=== PATIENT | male | born 1995 | race Caucasian/White ===

== ENCOUNTER 2023-08-26 18:07 | Emergency (ER) | payer SELFPAY ==
[2023-08-26 18:09] VITALS: BP 160/98
--- NOTE | 2023-08-26 19:09 | ED.GENMED ---
History of Present Illness
General
Chief Complaint: Alcohol Problem
Source: patient
Time Seen by Provider: 08/26/23 18:55
Travel History
Have you had any contact with someone who has COVID-19?: No
Do you have any symptoms of coronavirus? Fever > 100 degrees, chills, cough, shortness of breath, sore throat, loss of taste or smell, muscle aches, or headache?: No
History of Present Illness
History of Present Illness:
This patient is a 28-year-old male with no prior medical history who presents with a history of heavy alcohol use. He now is drinking between 12-15 shots of alcohol per day. His last drink was sometime this morning, and says he starting to feel
like he is in mild alcohol withdrawal. He states that he no longer wants to drink alcohol but he is afraid that he will develop life-threatening symptoms if he attempts to withdraw on his own. He has had poor food and drink intake over the last
couple days just because he does not really feel very hungry. He overall feels shaky, weak, anxious, with occasional nonbloody vomiting. He denies chest pain, shortness of breath, abdominal pain, bleeding, or other complaints. He denies drug use.
Past History
Past History
ED Past Medical History: None
ED Past Surgical History: Urological
Social History
Tobacco: Smoker
Alcohol: Daily
Drug: None
Personal:
Living: alone
Phy Exam
Physical Exam
Physical Exam:
GENERAL: Alert , unkempt, in no apparent distress
EYE: pupils equal and reactive
NECK: Supple, no significant adenopathy.
ENT: o/p clr, mm dry
CARDIAC: Regular rate and rhythm, tachycardia .
LUNGS: Clear breath sounds bilaterally, no acute respiratory distress, no wheezes/rales/rhonchi
ABDOMEN: Soft, without focal tenderness, no r/g, no cvat
NEUROLOGICAL: Alert and oriented, no focal neuro deficits
SKIN: Warm and dry, skin intact.
MUSCULOSKELETAL: No edema, well perfused.
PSYCH: sl anxious
Scores
Withdrawal Assessment of Alcohol
Withdrawal Assessment Completed?: Yes
Nausea and Vomiting: Intermittent nausea with dry heaves
Tactile Disturbances: None
Tremor: Not visible, but can be felt fingertip to fingertip
Auditory Disturbances: Not present
Paroxysmal Sweats: No sweat visible
Visual Disturbances: Not present
Anxiety: Mild anxiety
Headache, Fullness in Head: Very mild
Agitation: Normal activity
Orientation and clouding of sensorium: Oriented and can do serial additions
Total CIWA Score: 7
Alcohol Withdrawal Medication Recommendation: Equal to MSAS Score 0-4. Monitor & re-assess q2hrs, NO MEDICATION NEEDED
Course
Orders/Labs/Results
Orders:
Orders
08/26/23 19:07
Cardiac Monitoring- Treatment ONCE
FOLic ACID [Folvite] 1 mg 0.9% Sodium Chloride 50 ml [Nss] 50 ml IV NOW
Thiamine Injection 200 mg IV NOW STA
08/26/23 19:14
FOLic ACID [Folvite] 1 mg 0.9% Sodium Chloride 50 ml [Nss] 50 ml IV NOW
08/26/23 19:15
0.9% Sodium Chloride 1000 ml [Nss] 1,000 ml IV 500 mls/hr
08/26/23 19:19
Alcohol Urgent
Complete Blood Count/With Diff Urgent
Comprehensive Metabolic Panel Urgent
Magnesium Urgent
Phosphorus Urgent
Prothrombin Time Urgent
08/26/23 21:08
Lorazepam [Ativan] 1 mg IV NOW STA
Abnormal Lab Results
08/26/23
19:19
Hgb 18.2 H g/dL
(13.0-18.0)
MCV 94.5 H fL
(80.0-94.0)
MCH 34.3 H pg
(27.0-31.0)
MPV 12.6 H fL
(7.4-10.4)
Absolute Monos (auto) 0.7 H 10^3/uL
(0.1-0.6)
Carbon Dioxide 18 L mmol/L
(22-30)
BUN 7 L mg/dl
(9-20)
Calcium 10.5 H mg/dl
(8.4-10.2)
AST 238 H U/L
(17-59)
ALT 189 H U/L
(0-50)
Alkaline Phosphatase 132 H U/L
(38-126)
Total Protein 9.1 H g/dl
(6.3-8.2)
Albumin 5.8 H g/dl
(3.5-5.0)
08/26/23 19:19
08/26/23 19:19
Vital Signs
Initial and Last Documented VS:
Initial Vital Signs
Temp Pulse Resp BP Pulse Ox
97.8 F 130 16 160/98 98
08/26/23 18:09 08/26/23 18:09 08/26/23 18:09 08/26/23 18:09 08/26/23 18:09
Last Documented Vital Signs
Temp Pulse Resp BP Pulse Ox
97.8 F 93 14 160/98 99
08/26/23 18:09 08/26/23 22:00 08/26/23 22:00 08/26/23 18:09 08/26/23 22:03
*Critical Care Note
Total Time (30-74mins, 75-104mins- exclusive of procedures): Not Applicable
Update Note
Update Note:
Patient presents to the Emergency Department with alcohol use disorder
Number and Complexity of Problems Addressed at the Encounter
� Chronic conditions affecting care:
� Acute Exacerbation and/or Progression of Chronic Illness:
� Differential Diagnosis includes: But not limited to alcohol intoxication, alcohol withdrawal, Warnicke Korsakoff, etc.
Amount and/or Complexity of Data to be Reviewed and Analyzed
� I performed an independent evaluation of and my interpretation is:
EKG:
CT:
Xrays:
Laboratory Studies:lft abnl (as expected)
Other:
� Review of other/old records reveals:
� Clinical information was obtained by an independent historian: Taj, patient's friend, who is bedside
� Prescriptions/Medications Considered but not given:
� Further testing considered but not performed:
Risk of Complications and/or Morbidity or Mortality of Patient Management
� Social determinants of health affecting care:
� Discussion with other providers (PCP, Hospitalists, Consultants, etc):
� Escalation of care including admission/observation vs risk of discharge considered: 7:13 PM call placed to be [facility].
Long discussion with Parmjit from the [facility], also discussed with patient extensively. I highly recommend patient stay for inpatient detox, however he declines this. He is going to try to abstain from home and pursue outpatient care as directed by Parmjit.
Parmjit is also then follow-up with him each day for the next 30 days. I discussed with patient the option for me to give him a prescription for a benzodiazepine to help facilitate his withdrawal at home, understanding the high risk associated with
this particularly if he continues to drink alcohol. He understands the importance of abstaining from alcohol and other sedating toxins, our recommendation to pursue inpatient treatment, and reasons to return to the ER.
nOTE: pt states he feels much better, hr now 93, no tremor, no c/o anxiety, says he feels his thinking is 'clearer'. Friend remains at bedside.
ED Attending Note
-
Portions of this chart may have been created with voice recognition software.� Occasional wrong word or��sound alike� substitutions may have occurred due to the inherent limitations of voice recognition software.
Discharge Plan
Departure
Patient Disposition: Home (Routine Discharge)
Date of Disposition: 08/26/23
Time of Disposition: 21:16
Patient with high blood pressure during this ER visit?: Yes
Condition: Good
Discharge Problem:
Alcohol use disorder
Instructions: Alcohol Use Disorder (DC), BLOOD PRESSURE
Prescriptions:
New
multivitamin Tablet
1 tab PO DAILY Qty: 5 0RF
thiamine HCl (vitamin B1) 100 mg tablet
100 mg PO DAILY Qty: 5 0RF
lorazepam 2 mg tablet
2 - 4 mg PO Q4HPRN PRN (Reason: alcohol withdrawal) 5 Days Qty: 40 0RF
Rx Instructions:
TAKE 2-4MG EVERY 4 HOURS FOR 3-5 DAYS
folic acid 1 mg tablet
1 mg PO DAILY Qty: 5 0RF
No Action
valacyclovir [Valtrex] 1 gram tablet
1,000 mg PO TID Qty: 21 0RF
prednisone 50 mg tablet
50 mg PO DAILY Qty: 4 0RF
Referrals:
NONE,* [Family Provider] -
Activity Restrictions/Additional Instructions:
PLEASE FOLLOW UP WITH RESOURCES YOU HAVE BEEN GIVEN TONIGHT. WE RECOMMEND INPATIENT CARE, YOU DECLINE AT THIS TIME. IF YOU CHANGE YOUR MIND, PLEASE COME BACK. IF YOU DEVELOP AGITATION, SEVERE ANXIETY, UNCONTROLLED TREMOR, VOMITING, BLEEDING,
CHEST PAIN, TROUBLE BREATHING, DIZZINESS, OR OTHER WORRISOME SIGNS, GO TO THE ER IMMEDIATELY!
Interventions
Interventions:
*Risk Screen - Suicide Last Done: 08/26/23 18:09
*General Assessment Last Done: 08/26/23 18:09
*Neglect/Abuse Screening Last Done: 08/26/23 18:09
ED- Fall Risk Assessment Last Done: 08/26/23 19:20
*ED COVID-19 Vaccine History Last Done: 08/26/23 22:04
*Nursing Disposition Last Done: 08/26/23 22:04
ED- Neurological Assessment Last Done: 08/26/23 19:20
ED-Psychological Assessment Last Done: 08/26/23 19:20
Discharge Date and Time
Discharge Date/Time: 08/26/23 22:12
Print Language: SLOVENIAN
[2023-08-26 19:16] VITALS: BMI 31.2
[2023-08-26] MEDS: THIAMINE INJECTION 200 MG IV (19:26)
[2023-08-26] MEDS: NSS 1000 IV (19:26)
[2023-08-26] MEDS: FOLVITE 50.2000000000000028 MG IV (19:32)
[2023-08-26 19:45] LABS: INR 0.97; PT 12.7 Sec (11.4-14.6)
[2023-08-26 19:53] LABS: ALT (SGPT) 189 U/L (0-50); AST (SGOT) 238 U/L (17-59); Albumin 5.8 g/dl (3.5-5.0); Alcohol 214 mg/dl; Alkaline Phosphatase 132 U/L (38-126); Blood Urea Nitrogen 7 mg/dl (9-20); Calcium 10.5 mg/dl (8.4-10.2); Carbon Dioxide 18 mmol/L (22-30); Chloride 105 mmol/L (98-107); Estimated Creatinine Clearance > 125 ml/min; Glucose 98 mg/dl (70-99); Magnesium 1.8 mg/dl (1.6-2.3); Phosphorus 2.9 mg/dl (2.5-4.5); Potassium 3.8 mmol/L (3.5-5.1); Sodium 142 mmol/L (135-145); Total Bilirubin 0.9 mg/dl (0.2-1.3); Total Protein 9.1 g/dl (6.3-8.2); eGFR > 60.00
[2023-08-26 20:29] LABS: % Basophils 0.6 % (0-2); % Eosinophils 1.4 % (0-6); % Immature Granulocytes 0.4 % (0-0.5); % Lymphocytes 25.1 % (20.5-51.1); % Monocytes 6.8 % (1.7-9.3); % Neutrophils 65.7 % (42.2-75.2); Absolute Basophils 0.1 10^3/uL (0-0.2); Absolute Eosinophils 0.1 10^3/uL (0-0.7); Absolute Lymphocytes 2.4 10^3/uL (1.2-3.4); Absolute Monocytes 0.7 10^3/uL (0.1-0.6); Absolute Neutrophils 6.2 10^3/uL (1.4-6.5); Hematocrit 50.2 % (39.0-52.0); Hemoglobin 18.2 g/dL (13.0-18.0); Mean Corp Hgb Conc. 36.3 g/dL (33.0-37.0); Mean Corpuscular Hgb 34.3 pg (27.0-31.0); Mean Corpuscular Volume 94.5 fL (80.0-94.0); Mean Platelet Volume 12.6 fL (7.4-10.4); Nucleated Red Blood Cells % 0 % (-); Platelet Count 224 10^3/uL (130-400); Red Blood Cell Count 5.31 10^6/uL (4.70-6.10); Red Cell Dist. Width 12.4 % (11.5-14.5); White Blood Cell Count 9.5 10^3/uL (4.8-10.8)
[2023-08-26] MEDS: NSS IV (21:18)
== END 2023-08-26 22:12 | disposition home or self-care (01) ==
LOC: EMR 18:07
PROVIDERS: EMERGENCY PHYSICIAN Emergency Medicine
DX: F10.10 Alcohol abuse, uncomplicated (principal); R11.10 Vomiting, unspecified; R03.0 Elevated blood-pressure reading, without diagnosis of hypertension; F17.200 Nicotine dependence, unspecified, uncomplicated
CPT/HCPCS: 99284; 96374; 96375; 96361 ×2; 80053; 82077; 83735; 84100; 85025; 85610

== ENCOUNTER 2023-11-04 15:27 | Emergency (ER) | payer SELFPAY ==
[2023-11-04 15:29] VITALS: BP 147/98
[2023-11-04 15:38] VITALS: BP 147/89
--- NOTE | 2023-11-04 15:51 | ED.GENMED ---
History of Present Illness
General
Chief Complaint: Alcohol Problem
Time Seen by Provider: 11/04/23 15:34
Travel History
Have you had any contact with someone who has COVID-19?: No
Do you have any symptoms of coronavirus? Fever > 100 degrees, chills, cough, shortness of breath, sore throat, loss of taste or smell, muscle aches, or headache?: No
History of Present Illness
History of Present Illness:
Patient with a history of chronic alcohol use. Was drinking today. Drinks 1/5 of whiskey a day usually shots. Last drink was about an hour prior to ER arrival. He feels like he is in mild withdrawal and has drank less than typical today.
Patient does want help and he states his parents will find his help complaining of some nausea. No hallucinations.
Past History
Past History
ED Past Medical History: None
ED Past Surgical History: Urological
Social History
Tobacco: Smoker
Alcohol: Daily
Drug: None
Personal:
Living: alone
Review of Systems
Review of Systems
All Other Systems: Not applicable
Constitutional: Denies fever
Respiratory: Reports no symptoms
Cardiac: Reports no symptoms
Phy Exam
Physical Exam
Physical Exam:
GENERAL: Alert and oriented in no apparent distress
EYE: Orbits normal.
NECK: Supple, nontender
ENT: Pharynx without erythema
CARDIAC: Tachycardic and regular no murmur
LUNGS: Clear breath sounds,normal
ABDOMEN: Soft, without focal tenderness or distention
NEUROLOGICAL: Alert and oriented , grossly non-focal
SKIN: Warm and dry, no rash or lesion, no discoloration, skin intact.
MUSCULOSKELETAL: No edema,no deformity.Good color
PSYCH: Normal and appropriate interaction.
Scores
Withdrawal Assessment of Alcohol
Withdrawal Assessment Completed?: Yes
Nausea and Vomiting: Intermittent nausea with dry heaves
Tactile Disturbances: None
Tremor: Not visible, but can be felt fingertip to fingertip
Auditory Disturbances: Not present
Paroxysmal Sweats: No sweat visible
Visual Disturbances: Not present
Anxiety: Mild anxiety
Headache, Fullness in Head: Not present
Agitation: Normal activity
Orientation and clouding of sensorium: Oriented and can do serial additions
Total CIWA Score: 6
Alcohol Withdrawal Medication Recommendation: Equal to MSAS Score 0-4. Monitor & re-assess q2hrs, NO MEDICATION NEEDED
Course
Orders/Labs/Results
Orders:
Orders
11/04/23 15:41
IV Insert/Care/Rem.- Treatment PRN
0.9% Sodium Chloride 1000 ml [Nss] 1,000 ml IV BOLUS
Lorazepam [Ativan] 0.5 mg IV NOW STA
Ondansetron Injectable [Zofran] 4 mg IV NOW STA
11/04/23 15:43
Urinalysis Reflex To Culture Urgent
Urine Drug Abuse Screen Urgent
Thiamine Injection 200 mg IV NOW STA
11/04/23 16:17
Alcohol Urgent
Alcohol Urgent
Complete Blood Count/With Diff Urgent
Comprehensive Metabolic Panel Urgent
Magnesium Urgent
PTT Urgent
Phosphorus Urgent
Prothrombin Time Urgent
11/04/23 17:50
CT Head W/o Iv Contrast Urgent
Comment:
Reason For Exam: Possible recent head injury. Grogginess. EtOH us
Abnormal Lab Results
11/04/23
16:17
MCH 32.8 H pg
(27.0-31.0)
MPV 11.2 H fL
(7.4-10.4)
Absolute Neuts (auto) 7.4 H 10^3/uL
(1.4-6.5)
Absolute Monos (auto) 0.7 H 10^3/uL
(0.1-0.6)
Lymphocytes % 18.2 L %
(20.5-51.1)
Carbon Dioxide 17 L mmol/L
(22-30)
AST 79 H U/L
(17-59)
ALT 64 H U/L
(0-50)
Total Protein 8.3 H g/dl
(6.3-8.2)
Albumin 5.5 H g/dl
(3.5-5.0)
11/04/23 16:17
11/04/23 16:17
Vital Signs
Initial and Last Documented VS:
Initial Vital Signs
Temp Pulse Resp BP Pulse Ox
98.1 F 134 16 147/98 98
11/04/23 15:29 11/04/23 15:29 11/04/23 15:29 11/04/23 15:29 11/04/23 15:29
Last Documented Vital Signs
Temp Pulse Resp BP Pulse Ox
98.1 F 96 16 138/78 97
11/04/23 15:29 11/04/23 16:30 11/04/23 16:30 11/04/23 16:00 11/04/23 16:30
*Radiology
Radiology exam reviewed: radiology read reviewed (Negative head CT)
*Pulse Oximetry
Patient hypoxic: no
*[employer] Interpretation
Rate: tachycardiac
Interpretation: abnormal
Heart Rate: 104
Rhythm: sinus
*Critical Care Note
Total Time (30-74mins, 75-104mins- exclusive of procedures): Not Applicable
Update Note
Update Note:
Patient is remained medically stable and nontoxic. Seen by Dante. Has a place tonight. Patient's friend will escort him there. Fully awake alert and oriented. We did do a head CT as he stated he had had a head injury 2 to 3 days ago and feels
mildly foggy.
ED Attending Note
-
Portions of this chart may have been created with voice recognition software.� Occasional wrong word or��sound alike� substitutions may have occurred due to the inherent limitations of voice recognition software.
Discharge Plan
Departure
Patient Disposition: Home (Routine Discharge)
Date of Disposition: 11/04/23
Time of Disposition: 18:38
Patient with high blood pressure during this ER visit?: Yes
Discharge Problem:
Alcohol intoxication, History of alcohol abuse
Instructions: Alcohol Use Disorder (DC), BLOOD PRESSURE
Prescriptions:
No Action
valacyclovir [Valtrex] 1 gram tablet
1,000 mg PO TID Qty: 21 0RF
prednisone 50 mg tablet
50 mg PO DAILY Qty: 4 0RF
multivitamin Tablet
1 tab PO DAILY Qty: 5 0RF
thiamine HCl (vitamin B1) 100 mg tablet
100 mg PO DAILY Qty: 5 0RF
lorazepam 2 mg tablet
2 - 4 mg PO Q4HPRN PRN (Reason: alcohol withdrawal) 5 Days Qty: 40 0RF
Rx Instructions:
TAKE 2-4MG EVERY 4 HOURS FOR 3-5 DAYS
folic acid 1 mg tablet
1 mg PO DAILY Qty: 5 0RF
Referrals:
NONE,* [Family Provider] -
Activity Restrictions/Additional Instructions:
Go directly to the facility as directed by Dante. Do not drive yourself.
Interventions
Interventions:
*Risk Screen - Suicide Last Done: 11/04/23 16:00
*General Assessment Last Done: 11/04/23 16:00
*Neglect/Abuse Screening Last Done: 11/04/23 16:00
ED- Fall Risk Assessment Last Done: 11/04/23 16:00
*ED COVID-19 Vaccine History Last Done: 11/04/23 15:29
ED- Neurological Assessment Last Done: 11/04/23 16:00
ED-Psychological Assessment Last Done: 11/04/23 16:00
Discharge Date and Time
Print Language: JAPANESE
[2023-11-04 16:00] VITALS: BP 138/78; BMI 28.8
[2023-11-04] MEDS: ATIVAN 0.5 MG IV (16:18)
[2023-11-04] MEDS: NSS 1000 IV (16:19)
[2023-11-04] MEDS: THIAMINE INJECTION 200 MG IV (16:19)
[2023-11-04] MEDS: ZOFRAN 4 MG IV (16:19)
[2023-11-04 16:36] LABS: % Basophils 0.6 % (0-2); % Eosinophils 0.5 % (0-6); % Immature Granulocytes 0.3 % (0-0.5); % Lymphocytes 18.2 % (20.5-51.1); % Neutrophils 73.4 % (42.2-75.2); Absolute Basophils 0.1 10^3/uL (0-0.2); Absolute Eosinophils 0.1 10^3/uL (0-0.7); Absolute Lymphocytes 1.8 10^3/uL (1.2-3.4); Absolute Monocytes 0.7 10^3/uL (0.1-0.6); Absolute Neutrophils 7.4 10^3/uL (1.4-6.5); Hematocrit 47.6 % (39.0-52.0); Hemoglobin 17.4 g/dL (13.0-18.0); Mean Corp Hgb Conc. 36.6 g/dL (33.0-37.0); Mean Corpuscular Hgb 32.8 pg (27.0-31.0); Mean Corpuscular Volume 89.8 fL (80.0-94.0); Mean Platelet Volume 11.2 fL (7.4-10.4); Nucleated Red Blood Cells % 0 % (-); Platelet Count 212 10^3/uL (130-400); Red Cell Dist. Width 11.9 % (11.5-14.5); White Blood Cell Count 10.1 10^3/uL (4.8-10.8)
[2023-11-04 16:43] LABS: INR 1.04; PT 13.4 Sec (11.4-14.6)
[2023-11-04 16:44] LABS: APTT 24.4 Sec (23.4-35.0)
[2023-11-04 16:47] LABS: Alcohol 279 mg/dl
[2023-11-04 16:52] LABS: ALT (SGPT) 64 U/L (0-50); AST (SGOT) 79 U/L (17-59); Albumin 5.5 g/dl (3.5-5.0); Alkaline Phosphatase 125 U/L (38-126); Blood Urea Nitrogen 10 mg/dl (9-20); Calcium 10.1 mg/dl (8.4-10.2); Carbon Dioxide 17 mmol/L (22-30); Chloride 103 mmol/L (98-107); Estimated Creatinine Clearance 116 ml/min; Glucose 94 mg/dl (70-99); Magnesium 1.7 mg/dl (1.6-2.3); Phosphorus 2.8 mg/dl (2.5-4.5); Potassium 4.2 mmol/L (3.5-5.1); Sodium 144 mmol/L (135-145); Total Bilirubin 0.7 mg/dl (0.2-1.3); Total Protein 8.3 g/dl (6.3-8.2); eGFR > 60.00
[2023-11-04 17:00] VITALS: BP 128/92
[2023-11-04 17:05] LABS: Alcohol 274 mg/dl
[2023-11-04 18:00] VITALS: BP 116/71
== END 2023-11-04 19:03 | disposition home or self-care (01) ==
LOC: EMR 15:27
PROVIDERS: EMERGENCY PHYSICIAN Emergency Medicine
DX: F10.129 Alcohol abuse with intoxication, unspecified (principal); R03.0 Elevated blood-pressure reading, without diagnosis of hypertension; S09.90XA Unspecified injury of head, initial encounter; X58.XXXA Exposure to other specified factors, initial encounter; F17.200 Nicotine dependence, unspecified, uncomplicated; R11.0 Nausea
CPT/HCPCS: 99284; 96374; 96375 ×2; 96361; 70450; 80053; 82077; 83735; 84100; 85025; 85610; 85730